=== PATIENT | male | born 1985 | race Two or more races ===

== ENCOUNTER 2022-07-11 13:36 | Emergency (ER) | payer OTHER ==
[~2022-07-11] VITALS: Ht 175.3 cm; Wt 81.8 kg
[2022-07-11] MEDS ORDERED: LIDOcaine 5% patch TP STA (14:53)
[2022-07-11] MEDS ORDERED: ketorolac trometh inj. 60 MG/2 ML VIAL IM ONE (14:55)
[2022-07-11 15:31] VITALS: BP 117/71
== END 2022-07-11 15:52 | disposition home or self-care (01) ==
LOC: ER 13:37
DX: R07.81 Pleurodynia (principal); M54.9 Dorsalgia, unspecified; Z88.2 Allergy status to sulfonamides; Z79.899 Other long term (current) drug therapy; Z88.8 Allergy status to other drugs, medicaments and biological substances
CPT/HCPCS: 71045; 96372; 99284; J1885